=== PATIENT | female | born 1965 | race Asian ===

== ENCOUNTER 2018-02-17 19:31 | Emergency (ER) | payer BC ==
[2018-02-17 19:42] VITALS: BP 112/79
--- NOTE | 2018-02-17 19:54 | UC ---
Complaint Female HPI - HPI Summary HPI Summary: 52 yo female presents with urinary burning, pressure, and frequency for the last 4 days. She tells me that she gets a UTI about once a year and this feels the same. Has tried AZO otc with good relief, but symptoms came back when medicine wore off. Denies fever, chills, abdominal pain, n/v, hematuria, or flank pain. - History Of Current Complaint Chief Complaint: UCGU Stated Complaint: UTI Time Seen by Provider: 02/17/18 19:54 Hx Obtained From: Patient Onset/Duration: Gradual Onset Severity Initially: Mild Severity Currently: Mild Pain Intensity: 3 Pain Scale Used: 0-10 Numeric - Allergies/Home Medications Allergies/Adverse Reactions: Allergies Allergy/AdvReac Type Severity Reaction Status Date / Time ORANGE PEEL Allergy Severe ORAL Uncoded 02/17/18 19:43 SWELLING, PAIN Home Medications: Home Medications Vitamin TAB* 1 tab PO DAILY 02/17/18 [History Confirmed 02/17/18] Skin, Hair, Nails* 02/17/18 [History] PMH/Surg Hx/FS Hx/Imm Hx - Additional Past Medical History Additional PMH: None Previously Healthy: Yes - Surgical History Surgical History: None - Family History Known Family History: Positive: None - Social History Occupation: Employed Full-time Lives: With Family Alcohol Use: None Substance Use Type: None Smoking Status (MU): Never Smoked Tobacco Review of Systems Constitutional: Negative Skin: Negative Respiratory: Negative Cardiovascular: Negative Gastrointestinal: Negative Genitourinary: Dysuria, Frequency Neurological: Negative Psychological: Negative All Other Systems Reviewed And Are Negative: Yes Physical Exam - Summary Physical Exam Summary: GENERAL: NAD. WDWN. No pain distress. SKIN: No rashes, sores, lesions, or open wounds. NECK: Supple. Nontender. No lymphadenopathy. CHEST: CTAB. No r/r/w. No accessory muscle use. Breathing comfortably and in no distress. CV: RRR. Without m/r/g. Pulses intact. Brisk cap refill. ABDOMEN: Soft. NTTP. No distention or guarding. No organomegaly. No CVA tenderness. Bowel sounds present NEURO: Alert. CN II-XII grossly intact. PSYCH: Age appropriate behavior. Triage Information Reviewed: Yes Vital Signs: Initial Vital Signs Temp 97.5 F 02/17/18 19:38 Pulse 71 02/17/18 19:38 Resp 16 02/17/18 19:38 BP 112/79 02/17/18 19:38 Pulse Ox 97 02/17/18 19:38 Laboratory Tests 02/17/18 20:08 POC Urine Color Yellow POC Urine Clarity Clear POC Urine pH 7.0 POC Ur Specif Metter 1.015 POC Urine Protein Negative POC Ur Glucose (UA) Negative POC Urine Ketones Negative POC Urine Blood Trace-intact A POC Urine Nitrite Negative POC Urine Bilirubin Negative POC Urine Urobilinogen 0.2 POC U Leukocyte Esteras 2+ A Complaint Female Dx - Course Course Of Treatment: UA with signs of infection. Will treat with Macrobid and send for culture. - Differential Dx/Diagnosis Provider Diagnoses: UTI Discharge - Sign-Out/Discharge Documenting (check all that apply): Discharge/Admit/Transfer - Discharge Plan Condition: Stable Disposition: HOME Prescriptions: Nitrofurantoin Monohyd/M-Cryst [Macrobid 100 mg Capsule] 100 mg PO BID #10 cap Patient Education Materials: Urinary Tract Infection in Women (DC) Referrals: Ralf Mallory MD [Primary Care Provider] - Additional Instructions: If you develop a fever, shortness of breath, chest pain, new or worsening symptoms - please call your PCP or go to the ED. - Billing Disposition and Condition Condition: STABLE Disposition: Home
== END 2018-02-17 20:22 | disposition home or self-care (01) ==
LOC: UCEAST 19:31
DX: N39.0 Urinary tract infection, site not specified (principal); Z91.018 Allergy to other foods
CPT/HCPCS: 81003; 87077; 87086; 99212; G0463